=== PATIENT | female | born 1935 ===

== ENCOUNTER 2018-04-13 18:21 | Inpatient (IN) | payer MEDICARE, MEDICAID ==
[2018-04-13 20:24] LABS: SQUAMOUS EPITHIAL 1 /hpf (0-5); URINE BACTERIA RARE (<OCC); URINE BILIRUBIN NEGATIVE (NEGATIVE); URINE BLOOD NEGATIVE (NEGATIVE); URINE CLARITY CLEAR (Clear); URINE COLOR COLORLESS (YELLOW); URINE GLUCOSE (UA) NEG (Normal); URINE LEUKOCYTE ESTERASE MOD Leu/uL (Negative); URINE PROTEIN NEGATIVE (NEGATIVE); URINE UROBILINOGEN 0.2-1.0 mg/dL (0.2-1.0)
[2018-04-13 20:27] LABS: INR 0.9 (0.9-1.2); PARTIAL THROMBOPLASTIN TIME 23.9 Seconds (25.6-37.1); PROTHROMBIN TIME 10.4 Seconds (9.8-13.1)
[2018-04-13 20:29] LABS: CALCIUM 9.3 mg/dL (8.4-10.2); GFR AFRICAN-AMERICAN > 60; GFR NON-AFRICAN AMERICAN > 60
[2018-04-13 20:31] LABS: BASO # 0.1 K/uL (0.0-0.2); BASO % 1.1 % (0.0-2.0); EOS % 0.6 % (0.0-4.0); HEMOGLOBIN 12.5 g/dL (12.0-16.0); LYMPH # 1.5 K/uL (1.0-4.3); LYMPH % 25.7 % (20.0-40.0); MEAN CELL VOLUME 86.5 fl (81.0-99.0); MEAN CORPUSCULAR HEMOGLOBIN 28.7 pg (27.0-31.0); MEAN CORPUSCULAR HGB CONC 33.2 g/dL (33.0-37.0); MEAN PLATELET VOLUME 8.2 fl (7.2-11.7); MONO # 0.5 K/uL (0.0-0.8); NEUT # 3.9 K/uL (1.8-7.0); NEUT % 64.6 % (50.0-75.0); NRBC % 0.2 % (0.0-0.0); RBC 4.37 Mil/uL (3.80-5.20); RED CELL DISTRIBUTION WIDTH 15.1 % (11.5-14.5)
[2018-04-13 20:35] LABS: ALB/GLOB RATIO 1.1 (1.0-2.1); ALBUMIN 3.9 g/dL (3.5-5.0); ALT/SGPT 25 U/L (9-52); AST/SGOT 30 U/L (14-36); BLOOD UREA NITROGEN 22 mg/dl (7-17)
--- NOTE | 2018-04-13 20:57 | ED PDOC ---
Syncope/Near Syncope/Dizziness Time Seen by Provider: 04/13/18 19:16 Chief Complaint (Nursing): Dizziness/Lightheaded Chief Complaint (Provider): Generalized weakness History Per: Patient History/Exam Limitations: no limitations Onset/Duration Of Symptoms: Hrs Current Symptoms Are (Timing): Still Present Additional History Per: Patient Additional Complaint(s): 82yo female, with history of brain tumor surgery, hypertension, chronic vertigo , presents to ED with complaints of feeling generalized weakness, lightheadedness since 1400 today. Patient denies any vertiginous dizziness, nausea, or vomiting. She reports when the homemaker measured her blood pressure , it was 180/[address] Ryees, patient was advised to take another dose of her hypertension medication. Patient states on arrival to ER, her symptoms have resolved. She denies any associated chest pain, headache, fever, cough, nausea, vomiting, or shortness of breath. No other complaints. PMD: Dr. Reyes Past Medical History Reviewed: Historical Data, Nursing Documentation, Vital Signs Vital Signs: Last Vital Signs Temp 98.1 F 04/13/18 18:25 Pulse 73 04/13/18 20:02 Resp 21 04/13/18 20:02 BP 154/76 H 04/13/18 20:02 Pulse Ox 98 04/13/18 20:02 - Medical History PMH: Anxiety, Arthritis, Diabetes, HTN Denies: Chronic Kidney Disease Other PMH: chronic vertigo - Surgical History Other surgeries: brain tumor surgery - Family History Family History: States: No Known Family Hx - Social History Current smoker - smoking cessation education provided: No Alcohol: None Drugs: Denies - Home Medications Home Medications: Ambulatory Orders Medication Instructions Recorded Alprazolam [Xanax] 0.5 mg PO HS 10/06/15 Enalapril Maleate 2.5 mg PO DAILY 10/06/15 Promethazine DM [Phenergan DM 2 tsp PO Q4H 10/06/15 Syrup] Saxagliptin HCl/Metformin HCl 1 tab PO DAILY 10/06/15 [Kombiglyze Xr 5-500 mg Tablet] Ciprofloxacin HCl [Cipro] 500 mg PO BID #14 tab 11/06/15 Ibuprofen [Motrin] 600 mg PO Q6H PRN #10 tab 11/06/15 Tamsulosin [Flomax] 0.4 mg PO DAILY #14 cap 11/06/15 Cyanocobalamin [Vitamin B12 1000 04/13/18 mcg/ml Inj] Gabapentin [Neurontin] 300 mg PO 04/13/18 Rosuvastatin Calcium [Crestor] 10 mg PO 04/13/18 cycloSPORINE [Restasis] 1 liq 04/13/18 - Allergies Allergies/Adverse Reactions: Allergies Allergy/AdvReac Type Severity Reaction Status Date / Time No Known Allergies Allergy Verified 04/13/18 18:25 Review of Systems ROS Statement: Except As Marked, All Systems Reviewed And Found Negative Constitutional: Positive for: Weakness. Negative for: Fever, Chills Cardiovascular: Negative for: Chest Pain Respiratory: Negative for: Cough, Shortness of Breath Gastrointestinal: Negative for: Nausea, Vomiting Neurological: Positive for: Dizziness Physical Exam - Reviewed Nursing Documentation Reviewed: Yes Vital Signs Reviewed: Yes - Physical Exam Appears: Positive for: Non-toxic, No Acute Distress Head Exam: Positive for: ATRAUMATIC, NORMAL INSPECTION, NORMOCEPHALIC Skin: Positive for: Normal Color Eye Exam: Positive for: Normal appearance Neck: Positive for: Normal, Supple Cardiovascular/Chest: Positive for: Regular Rate, Rhythm Respiratory: Positive for: Normal Breath Sounds. Negative for: Wheezing Gastrointestinal/Abdominal: Positive for: Soft. Negative for: Tenderness Back: Positive for: Normal Inspection Extremity: Positive for: Normal ROM. Negative for: Pedal Edema, Deformity Neurologic/Psych: Positive for: Alert, Oriented. Negative for: Motor/Sensory Deficits - Laboratory Results Result Diagrams: 04/13/18 19:56 04/13/18 19:56 - ECG ECG: Positive for: Interpreted By Me, Viewed By Me ECG Rhythm: Positive for: Sinus Rhythm, 1st Degree Heart Block, Left Bundle Branch Block Rate: 69 (18:35) O2 Sat by Pulse Oximetry: 98 (RA) Pulse Ox Interpretation: Normal Medical Decision Making Medical Decision Making: Impression: 82yo female with episode of weakness Plan: -- Labs -- EKG -- Urinalysis Time: [address] Reyes and patient to be admitted for observation due to near-syncope. Labs reviewed with no clinically significant abnormalities noted. Scribe Attestation: Documented by Shauna Arizmendi, acting as a scribe for Mao Flynn MD Provider Attestation: All medical record entries made by the Scribe were at my direction and personally dictated by me. I have reviewed the chart and agree that the record accurately reflects my personal performance of the history, physical exam, medical decision making, and the department course for this patient. I have also personally directed, reviewed, and agree with the discharge instructions and disposition. Disposition - Clinical Impression Clinical Impression: Near syncope - Disposition Disposition Time: 22:00 Condition: FAIR - Pt Status Changed To: Hospital Disposition Of: Observation
[2018-04-14 06:17] VITALS: BMI 30.3
--- NOTE | 2018-04-14 08:48 | RAD ---
HISTORY: admit COMPARISON: No prior. FINDINGS: LUNGS: No active pulmonary disease. PLEURA: No significant pleural effusion identified, no pneumothorax apparent. CARDIOVASCULAR: Atherosclerotic aortic calcifications. Cardiomediastinal silhouette appears enlarged ; however, this cannot be accurately assessed on an AP projection. OSSEOUS STRUCTURES: Degenerative changes. VISUALIZED UPPER ABDOMEN: Normal. OTHER FINDINGS: None. IMPRESSION: No active disease.
--- NOTE | 2018-04-14 10:30 | CARD ---
APPROVED REPORT EKG Measurement Heart [id number] CT 220P64 [id number] <Conclusion> Sinus rhythm with 1st degree AV block Left bundle branch block Abnormal ECG
[2018-04-14] MEDS: Enoxaparin 40 mg Syringe SC SCH (14:01)
--- NOTE | 2018-04-14 14:29 | CP.PCM.HP ---
History of Present Illness - History of Present Illness History of Present Illness: CC: Generalized weakness. 82 y/o F, Hx of Chronic vertigo, Brain Tumor S/P Craniectomy 2014, came to [facility], [place], on 03/13/18 accompany by her daughter, for the evaluation of generalized weakness associated to lightheadedness that began at 2 PM DOA with no relief. Worsening symptoms: Dizziness, increased anxiety. Pt with Hx of congenital deafness R ear, hard of hearing L ear after surgery on 2014 for leaking fluid and after with worsening tinnitus and loss of hearing L ear. Aggravated factor: Movements/exercise. No: Fever, chills, syncope, LOC, numbness, CP, palpitations, SOB, cough, n/v/d , abdominal pain, urinary symptoms, sick contact, recent travel out of [place]. CXR showed: No active disease. EKG: Sinus rhythm with 1st degree AV block, LBBB. Present on Admission - Present on Admission Any Indicators Present on Admission: No Review of Systems - Review of Systems Systems not reviewed;Unavailable: Acuity of Condition (deafness.) Past Patient History - Past Medical History & Family History Past Medical History?: Yes Pertinent Family History: Unknown - Past Social History Smoking Status: 40 yrs ago Alcohol: None Drugs: Denies Home Situation {Lives}: Alone - CARDIAC Hx Cardiac Disorders: Yes (HTN) Hx Hypertension: Yes - PULMONARY Hx Respiratory Disorders: No - NEUROLOGICAL Hx Neurological Disorder: Yes Hx Dizziness: Yes - HEENT Hx HEENT Problems: Yes (deaf) Hx Cataracts: Yes - RENAL Hx Chronic Kidney Disease: No - ENDOCRINE/METABOLIC Hx Endocrine Disorders: Yes (DM) Hx Diabetes Mellitus Type 2: Yes - HEMATOLOGICAL/ONCOLOGICAL Hx Blood Disorders: No - INTEGUMENTARY Hx Dermatological Problems: No - MUSCULOSKELETAL/RHEUMATOLOGICAL Hx Musculoskeletal Disorders: Yes Hx Arthritis: Yes Hx Falls: Yes (one year ago) - GASTROINTESTINAL Hx Gastrointestinal Disorders: No - GENITOURINARY/GYNECOLOGICAL Hx Genitourinary Disorders: No - PSYCHIATRIC Hx Psychophysiologic Disorder: Yes Hx Anxiety: Yes Hx Substance Use: No - SURGICAL HISTORY Hx Surgeries: Yes Hx Section: Yes Hx Eye Surgery: Yes Other/Comment: hx of L ear. brain sx x2 - ANESTHESIA Hx Anesthesia: Yes Hx Anesthesia Reactions: No Hx Malignant Hyperthermia: No Meds Allergies/Adverse Reactions: Allergies Allergy/AdvReac Type Severity Reaction Status Date / Time No Known Allergies Allergy Verified 04/13/18 18:25 Physical Exam - Constitutional Appears: No Acute Distress, Chronically Ill - Head Exam Head Exam: NORMAL INSPECTION - Eye Exam Eye Exam: PERRL - ENT Exam Additional comments: Deafness - Neck Exam Neck exam: Positive for: Normal Inspection - Respiratory Exam Respiratory Exam: NORMAL BREATHING PATTERN - Cardiovascular Exam Cardiovascular Exam: REGULAR RHYTHM - GI/Abdominal Exam GI & Abdominal Exam: Normal Bowel Sounds, Soft Additional comments: Under abdominal folds redness - Extremities Exam Additional comments: Discoloration on top of R foot - Back Exam Additional comments: Redness sacral area - Neurological Exam Neurological exam: Alert, Oriented x3 Additional comments: unsteady gait 2nd to dizziness. - Psychiatric Exam Psychiatric exam: Anxious - Skin Skin Exam: Warm Results - Vital Signs Recent Vital Signs: Last Vital Signs Temp 97.3 F L 04/14/18 12:00 Pulse 72 04/14/18 12:00 Resp 20 04/14/18 12:00 BP 97/60 L 04/14/18 12:00 Pulse Ox 97 04/14/18 12:00 [place] - Labs Result Diagrams: 04/13/18 19:56 04/13/18 19:56 Labs: Laboratory Results - last 24 hr 04/13/18 04/13/18 04/13/18 18:45 19:56 19:56 WBC 6.0 D RBC 4.37 Hgb 12.5 Hct 37.8 MCV 86.5 D MCH 28.7 MCHC 33.2 RDW 15.1 H Plt Count 177 MPV 8.2 Neut % (Auto) 64.6 Lymph % (Auto) 25.7 [place] % (Auto) 8.0 Eos % (Auto) 0.6 Baso % (Auto) 1.1 Neut # (Auto) 3.9 Lymph # (Auto) 1.5 [place] # (Auto) 0.5 Eos # (Auto) 0.0 Baso # (Auto) 0.1 PT INR APTT Sodium 142 Potassium 5.1 H Chloride 104 Carbon Dioxide 26 Anion Gap 17 BUN 22 H Creatinine 0.6 L Est GFR ( Amer) > 60 Est GFR (Non-Af Amer) > 60 POC Glucose (mg/dL) 82 Random Glucose 98 Calcium 9.3 Total Bilirubin 0.7 AST 30 ALT 25 Alkaline Phosphatase 68 Troponin I < 0.0120 Total Protein 7.6 Albumin 3.9 Globulin 3.6 Albumin/Globulin Ratio 1.1 Urine Color Urine Clarity Urine pH Ur Specific [place] Urine Protein Urine Glucose (UA) Urine Ketones Urine Blood Urine Nitrate Urine Bilirubin Urine Urobilinogen Ur Leukocyte Esterase Urine RBC (Auto) Urine Microscopic WBC Ur Squamous Epith Cells Urine Bacteria 04/13/18 04/13/18 04/14/18 19:56 19:56 12:03 WBC RBC Hgb Hct MCV MCH MCHC RDW Plt Count MPV Neut % (Auto) Lymph % (Auto) [place] % (Auto) Eos % (Auto) Baso % (Auto) Neut # (Auto) Lymph # (Auto) [place] # (Auto) Eos # (Auto) Baso # (Auto) PT 10.4 INR 0.9 APTT 23.9 L Sodium Potassium Chloride Carbon Dioxide Anion Gap BUN Creatinine Est GFR ( Amer) Est GFR (Non-Af Amer) POC Glucose (mg/dL) 128 H Random Glucose Calcium Total Bilirubin AST ALT Alkaline Phosphatase Troponin I Total Protein Albumin Globulin Albumin/Globulin Ratio Urine Color Colorless Urine Clarity Clear Urine pH 7.0 Ur Specific [place] < 1.005 Urine Protein Negative Urine Glucose (UA) Neg Urine Ketones Negative Urine Blood Negative Urine Nitrate Negative Urine Bilirubin Negative Urine Urobilinogen 0.2-1.0 Ur Leukocyte Esterase Mod Urine RBC (Auto) 1 Urine Microscopic WBC 2 Ur Squamous Epith Cells 1 Urine Bacteria Rare reviewed J.P. - EKG Data EKG comments: reviewed J.P. - Imaging and Cardiology Chest x-ray Status: Report reviewed by me (Renay) Assessment & Plan (1) Near syncope Status: Acute Priority: High (2) Generalized weakness Status: Acute (3) HTN (hypertension) Status: Acute (4) DM II (diabetes mellitus, type II), controlled Status: Chronic Priority: Medium (5) High cholesterol Status: Acute (6) Vitamin B12 deficiency Status: Chronic Priority: Medium (7) Hard of hearing Status: Chronic Priority: Medium - Assessment and Plan (Free Text) Plan: Continue Lovenox, Vasotec, Lipitor, Neurontin and rest of Tx. PT eval. - Date & Time Date: 04/14/18 Time: 10:00
[2018-04-15 06:05] LABS: BASO % 0.5 % (0.0-2.0); EOS # 0.1 K/uL (0.0-0.7); EOS % 1.6 % (0.0-4.0); HEMOGLOBIN 12.3 g/dL (12.0-16.0); LYMPH # 1.6 K/uL (1.0-4.3); MEAN CELL VOLUME 87.1 fl (81.0-99.0); MEAN CORPUSCULAR HEMOGLOBIN 28.9 pg (27.0-31.0); MEAN CORPUSCULAR HGB CONC 33.2 g/dL (33.0-37.0); MEAN PLATELET VOLUME 7.7 fl (7.2-11.7); MONO # 0.5 K/uL (0.0-0.8); MONO % 9.5 % (0.0-10.0); NEUT % 57.4 % (50.0-75.0); NRBC % 0.1 % (0.0-0.0); RBC 4.25 Mil/uL (3.80-5.20); RED CELL DISTRIBUTION WIDTH 14.8 % (11.5-14.5); WHITE BLOOD COUNT 5.2 K/uL (4.8-10.8)
[2018-04-15 06:34] LABS: LDL CHOLESTEROL 117 mg/dL (0-129)
[2018-04-15 06:37] LABS: T4 7.21 ug/dl (5.5-11.0)
[2018-04-15 07:34] LABS: ALBUMIN 3.4 g/dL (3.5-5.0); ALT/SGPT 24 U/L (9-52); AST/SGOT 20 U/L (14-36); BLOOD UREA NITROGEN 14 mg/dl (7-17); CALCIUM 8.8 mg/dL (8.4-10.2); GFR AFRICAN-AMERICAN > 60; GFR NON-AFRICAN AMERICAN > 60; HDL CHOLESTEROL 48 MG/DL (30-70)
[2018-04-15] MEDS: Enoxaparin 40 mg Syringe SC SCH (08:46)
--- NOTE | 2018-04-15 10:33 | CARD ---
APPROVED REPORT EXAM: Two-dimensional and M-mode echocardiogram with Doppler and color Doppler. Other Information Quality : AverageRhythm : NSR INDICATION Hypertension/HCVD Syncope 2D DIMENSIONS IVSd1.24 (0.7-1.1cm)LVDd3.39 (3.9-5.9cm) LVOT Diameter1.93 (1.8-2.4cm)PWd1.07 (0.7-1.1cm) IVSs1.35 (0.8-1.2cm)LVDs2.40 (2.5-4.0cm) FS (%) 29.3 %PWs1.36 (0.8-1.2cm) LVEF (%)55.0 (>50%) M-Mode DIMENSIONS Left Atrium (MM)4.38 (2.5-4.0cm)IVSd1.38 (0.7-1.1cm) Aortic Root3.03 (2.2-3.7cm)LVDd3.74 (4.0-5.6cm) Aortic Cusp Exc.1.88 (1.5-2.0cm)PWd1.32 (0.7-1.1cm) IVSs1.47 cmFS (%) 40 % LVDs2.24 (2.0-3.8cm)PWs1.29 cm Mitral Valve E/A ratio0.0 TDI E/Lateral E'0.0E/Medial E'0.0 LEFT VENTRICLE The left ventricle is normal size. There is borderline concentric left ventricular hypertrophy. The left ventricular function is normal. The left ventricular ejection fraction is within the normal range. There is normal LV segmental wall motion. Transmitral Doppler flow pattern is Grade I-abnormal relaxation pattern. RIGHT VENTRICLE The right ventricle is normal size. There is normal right ventricular wall thickness. The right ventricular systolic function is normal. ATRIA The left atrium is borderline dilated. The right atrium size is normal. AORTIC VALVE The aortic valve is not well visualized. There is trace aortic regurgitation. There is no aortic valvular stenosis. MITRAL VALVE The mitral valve is not well visualized. There is no mitral valve stenosis. There is no mitral valve regurgitation noted. TRICUSPID VALVE The tricuspid valve is normal in structure. There is no tricuspid valve regurgitation noted. PULMONIC VALVE The pulmonary valve is normal in structure. There is no pulmonic valvular regurgitation. GREAT VESSELS The aortic root is normal in size. The IVC was not visualized. PERICARDIAL EFFUSION The pericardium appears normal. <Conclusion> The left ventricle is normal size. The left ventricular function is normal. The left ventricular ejection fraction is within the normal range. There is normal LV segmental wall motion. Transmitral Doppler flow pattern is Grade I-abnormal relaxation pattern.
--- NOTE | 2018-04-15 11:13 | CT ---
PROCEDURE: CT HEAD WITHOUT CONTRAST. HISTORY: near syncope COMPARISON: 10/06/2015 TECHNIQUE: Axial computed tomography images were obtained through the head/brain without intravenous contrast. Radiation dose: Total exam DLP = 859 mGy-cm. This CT exam was performed using one or more of the following dose reduction techniques: Automated exposure control, adjustment of the mA and/or kV according to patient size, and/or use of iterative reconstruction technique. FINDINGS: HEMORRHAGE: No intracranial hemorrhage. BRAIN: A chronic appearing left frontal meningioma suggested -measuring 1.8 by 1.3 cm ; inner calvarial hyperostosis associated with this. Possible smaller right mild level frontal meningioma with contiguous blending inner calvarial hyperostoses. A left anterior middle cranial fossa 1.2 cm chronic appearing partially calcified meningioma is suggested. Posterior and superior to this there are left craniotomy changes more extensive craniectomy changes on the right suboccipital location suggested similar in appearance Similar mild age-appropriate atrophy. No interval significant microvascular ischemic changes appreciated VENTRICLES: Appropriate for age CALVARIUM: Postsurgical changes as above PARANASAL SINUSES: The opacification of the lateral right sphenoid air cell and the posterior main right lateral sphenoid air cell is renoted underlying retention cysts here inferred MASTOID AIR CELLS: There is some improved aeration in each inferior mastoid air cell effusion. Minimal residual effusion nonspecific still present. OTHER FINDINGS: Prominent empty sella - similar-appearing IMPRESSION: Postop changes as above. No interval hemorrhage or interval mass effect. Bilateral chronic appearing meningiomas -as above
--- NOTE | 2018-04-15 11:20 | CP.PCM.CON ---
History of Present Illness - History of Present Illness History of Present Illness: Consultation for evaluation of syncope Patient is [place] and congenitally deaf in the R ear. Interpretation was provided by S[place] interpretor via audio and visual text HPI: 82 yo F with PMH of HTN, T2DM, HLD who had an episode of dizziness /lightheadedness, blurry vision (seeing spots) and generalized weakness that occurred 2 days ago. Her BP was measured by a home health aide at 180s/90s. Patient was given an additional dose of her Enalapril at home before coming to the ED for evaluation. Upon arrival, her BP was 154/76. EKG showed sinus rhythm at 69 with 1st deg AVB and LBBB. ECHO revealed mild concentric LVH with EF 55%. Today, patient is pleasant and without denies any complaints. Denies chest pain , palpitations, n/v, dizziness or headache. Review of Systems - Constitutional Constitutional: As Per HPI. absent: Fatigue, Fever - Neurological Neurological: Dizziness. absent: Loss of Vision, Syncope Past Patient History - Past Medical History & Family History Past Medical History?: Yes - Past Social History Smoking Status: 40 yrs ago Alcohol: None Drugs: Denies Home Situation {Lives}: Alone - CARDIAC Hx Cardiac Disorders: Yes (HTN) Hx Hypertension: Yes - PULMONARY Hx Respiratory Disorders: No - NEUROLOGICAL Hx Neurological Disorder: Yes Hx Dizziness: Yes - HEENT Hx HEENT Problems: Yes (deaf) Hx Cataracts: Yes - RENAL Hx Chronic Kidney Disease: No - ENDOCRINE/METABOLIC Hx Endocrine Disorders: Yes (DM) Hx Diabetes Mellitus Type 2: Yes - HEMATOLOGICAL/ONCOLOGICAL Hx Blood Disorders: No - INTEGUMENTARY Hx Dermatological Problems: No - MUSCULOSKELETAL/RHEUMATOLOGICAL Hx Musculoskeletal Disorders: Yes Hx Arthritis: Yes Hx Falls: Yes (one year ago) - GASTROINTESTINAL Hx Gastrointestinal Disorders: No - GENITOURINARY/GYNECOLOGICAL Hx Genitourinary Disorders: No - PSYCHIATRIC Hx Psychophysiologic Disorder: Yes Hx Anxiety: Yes Hx Substance Use: No - SURGICAL HISTORY Hx Surgeries: Yes Hx Section: Yes Hx Eye Surgery: Yes Other/Comment: hx of L ear. brain sx x2 - ANESTHESIA Hx Anesthesia: Yes Hx Anesthesia Reactions: No Hx Malignant Hyperthermia: No Meds Allergies/Adverse Reactions: Allergies Allergy/AdvReac Type Severity Reaction Status Date / Time No Known Allergies Allergy Verified 04/13/18 18:25 - Medications Medications: Current Medications Alprazolam (Xanax) 0.5 mg PO HS [facility] Last Admin: 04/14/18 22:19 Dose: 0.5 mg Atorvastatin Calcium (Lipitor) 20 mg PO DAILY [facility] Last Admin: 04/15/18 08:46 Dose: 20 mg Enalapril Maleate (Vasotec) 2.5 mg PO DAILY [facility] Last Admin: 04/15/18 08:46 Dose: 2.5 mg Enoxaparin Sodium (Lovenox) 40 mg SC DAILY [facility] PRN Reason: Protocol Last Admin: 04/15/18 08:46 Dose: 40 mg Gabapentin (Neurontin) 300 mg PO [facility] Last Admin: 04/14/18 22:19 Dose: 300 mg Physical Exam - Constitutional Appears: Well, Non-toxic, No Acute Distress - Head Exam Head Exam: ATRAUMATIC, NORMOCEPHALIC - Eye Exam Eye Exam: Normal appearance - Respiratory Exam Respiratory Exam: Clear to Auscultation Bilateral, NORMAL BREATHING PATTERN - Cardiovascular Exam Cardiovascular Exam: REGULAR RHYTHM, RRR, +S1, +S2 Results - Vital Signs Recent Vital Signs: Last Vital Signs Temp 97.9 F 04/15/18 08:00 Pulse 54 L 04/15/18 08:00 Resp 18 04/15/18 08:00 BP 112/64 04/15/18 08:00 Pulse Ox 98 04/15/18 08:00 - Labs Result Diagrams: 04/15/18 04:20 04/15/18 04:20 Labs: Laboratory Results - last 24 hr 04/14/18 04/14/18 04/14/18 12:03 16:10 21:27 WBC RBC Hgb Hct MCV MCH MCHC RDW Plt Count MPV Neut % (Auto) Lymph % (Auto) [place] % (Auto) Eos % (Auto) Baso % (Auto) Neut # (Auto) Lymph # (Auto) [place] # (Auto) Eos # (Auto) Baso # (Auto) Sodium Potassium Chloride Carbon Dioxide Anion Gap BUN Creatinine Est GFR ( Amer) Est GFR (Non-Af Amer) POC Glucose (mg/dL) 128 H 103 103 Random Glucose Calcium Total Bilirubin AST ALT Alkaline Phosphatase Total Protein Albumin Globulin Albumin/Globulin Ratio Triglycerides Cholesterol LDL Cholesterol Direct HDL Cholesterol Vitamin B12 Thyroxine (T4) TSH 3rd Generation 04/15/18 04/15/18 04/15/18 04:20 04:20 05:19 WBC 5.2 RBC 4.25 Hgb 12.3 Hct 37.0 MCV 87.1 MCH 28.9 MCHC 33.2 RDW 14.8 H Plt Count 251 MPV 7.7 Neut % (Auto) 57.4 Lymph % (Auto) 31.0 [place] % (Auto) 9.5 Eos % (Auto) 1.6 Baso % (Auto) 0.5 Neut # (Auto) 3.0 Lymph # (Auto) 1.6 [place] # (Auto) 0.5 Eos # (Auto) 0.1 Baso # (Auto) 0.0 Sodium 141 Potassium 3.8 Chloride 106 Carbon Dioxide 27 Anion Gap 12 BUN 14 Creatinine 0.6 L Est GFR ( Amer) > 60 Est GFR (Non-Af Amer) > 60 POC Glucose (mg/dL) 92 Random Glucose 100 Calcium 8.8 Total Bilirubin 0.4 AST 20 ALT 24 Alkaline Phosphatase 71 Total Protein 6.6 Albumin 3.4 L Globulin 3.3 Albumin/Globulin Ratio 1.0 Triglycerides 130 Cholesterol 210 H LDL Cholesterol Direct 117 HDL Cholesterol 48 Vitamin B12 543 Thyroxine (T4) 7.21 TSH 3rd Generation 1.72 Assessment & Plan (1) Near syncope Assessment and Plan: etiology ? 2' to meningioma vs HTN induced echo reviewed IVF hydration Status: Acute Priority: High Comment: 1. BNP. 2. Orthostatics x 1. 3. Urine E-Lytes, will measure FENa (2) Generalized weakness Status: Acute (3) HTN (hypertension) Status: Chronic Comment: Continue Enalapril (4) High cholesterol Status: Chronic Comment: Continue Lipitor - Date & Time Date: 04/15/18 Time: 20:33
--- NOTE | 2018-04-15 12:52 | CP.PCM.CON ---
History of Present Illness - History of Present Illness History of Present Illness: Miss loving is an 82 yr old woman, right handed with pmh of meningioma s/p craniectomy 2015, chronic vertigo, and hypertension who presented to the er for weakness and lightheadedness with dizziness that started 2 days prior. Denies aphasia, weakness, facial droop, mva, or recent change in medications. Her daughter states that her hypertension is very uncontrolled, but today she does not have any dizziness. No: Fever, chills, syncope, LOC, numbness, CP, palpitations, SOB, cough, n/v/d , abdominal pain, urinary symptoms, sick contact, recent travel out of [facility]. CXR showed: No active disease. EKG: Sinus rhythm with 1st degree AV block, LBBB. on exam; Neurological exam is normal except for wide based gait Past Patient History - Past Medical History & Family History Past Medical History?: Yes - Past Social History Smoking Status: 40 yrs ago Alcohol: None Drugs: Denies Home Situation {Lives}: Alone - CARDIAC Hx Cardiac Disorders: Yes (HTN) Hx Hypertension: Yes - PULMONARY Hx Respiratory Disorders: No - NEUROLOGICAL Hx Neurological Disorder: Yes Hx Dizziness: Yes - HEENT Hx HEENT Problems: Yes (deaf) Hx Cataracts: Yes - RENAL Hx Chronic Kidney Disease: No - ENDOCRINE/METABOLIC Hx Endocrine Disorders: Yes (DM) Hx Diabetes Mellitus Type 2: Yes - HEMATOLOGICAL/ONCOLOGICAL Hx Blood Disorders: No - INTEGUMENTARY Hx Dermatological Problems: No - MUSCULOSKELETAL/RHEUMATOLOGICAL Hx Musculoskeletal Disorders: Yes Hx Arthritis: Yes Hx Falls: Yes (one year ago) - GASTROINTESTINAL Hx Gastrointestinal Disorders: No - GENITOURINARY/GYNECOLOGICAL Hx Genitourinary Disorders: No - PSYCHIATRIC Hx Psychophysiologic Disorder: Yes Hx Anxiety: Yes Hx Substance Use: No - SURGICAL HISTORY Hx Surgeries: Yes Hx Section: Yes Hx Eye Surgery: Yes Other/Comment: hx of L ear. brain sx x2 - ANESTHESIA Hx Anesthesia: Yes Hx Anesthesia Reactions: No Hx Malignant Hyperthermia: No Meds Allergies/Adverse Reactions: Allergies Allergy/AdvReac Type Severity Reaction Status Date / Time No Known Allergies Allergy Verified 04/13/18 18:25 - Medications Medications: Current Medications Alprazolam (Xanax) 0.5 mg PO HS [facility] Last Admin: 04/14/18 22:19 Dose: 0.5 mg Atorvastatin Calcium (Lipitor) 20 mg PO DAILY [facility] Last Admin: 04/15/18 08:46 Dose: 20 mg Enalapril Maleate (Vasotec) 2.5 mg PO DAILY [facility] Last Admin: 04/15/18 08:46 Dose: 2.5 mg Enoxaparin Sodium (Lovenox) 40 mg SC DAILY [facility] PRN Reason: Protocol Last Admin: 04/15/18 08:46 Dose: 40 mg Gabapentin (Neurontin) 300 mg PO HS [facility] Last Admin: 04/14/18 22:19 Dose: 300 mg Results - Vital Signs Recent Vital Signs: Last Vital Signs Temp 97.9 F 04/15/18 08:00 Pulse 54 L 04/15/18 08:00 Resp 18 04/15/18 08:00 BP 112/64 04/15/18 08:00 Pulse Ox 98 04/15/18 08:00 - Labs Result Diagrams: 04/15/18 04:20 04/15/18 04:20 Labs: Laboratory Results - last 24 hr 04/14/18 04/14/18 04/15/18 16:10 21:27 04:20 WBC 5.2 RBC 4.25 Hgb 12.3 Hct 37.0 MCV 87.1 MCH 28.9 MCHC 33.2 RDW 14.8 H Plt Count 251 MPV 7.7 Neut % (Auto) 57.4 Lymph % (Auto) 31.0 Wood % (Auto) 9.5 Eos % (Auto) 1.6 Baso % (Auto) 0.5 Neut # (Auto) 3.0 Lymph # (Auto) 1.6 Wood # (Auto) 0.5 Eos # (Auto) 0.1 Baso # (Auto) 0.0 Sodium Potassium Chloride Carbon Dioxide Anion Gap BUN Creatinine Est GFR ( Amer) Est GFR (Non-Af Amer) POC Glucose (mg/dL) 103 103 Random Glucose Hemoglobin A1c Calcium Total Bilirubin AST ALT Alkaline Phosphatase Total Protein Albumin Globulin Albumin/Globulin Ratio Triglycerides Cholesterol LDL Cholesterol Direct HDL Cholesterol Vitamin B12 25-OH Vitamin D Total Thyroxine (T4) TSH 3rd Generation 04/15/18 04/15/18 04/15/18 04:20 04:20 04:20 WBC RBC Hgb Hct MCV MCH MCHC RDW Plt Count MPV Neut % (Auto) Lymph % (Auto) Wood % (Auto) Eos % (Auto) Baso % (Auto) Neut # (Auto) Lymph # (Auto) Wood # (Auto) Eos # (Auto) Baso # (Auto) Sodium 141 Potassium 3.8 Chloride 106 Carbon Dioxide 27 Anion Gap 12 BUN 14 Creatinine 0.6 L Est GFR ( Amer) > 60 Est GFR (Non-Af Amer) > 60 POC Glucose (mg/dL) Random Glucose 100 Hemoglobin A1c 6.0 Calcium 8.8 Total Bilirubin 0.4 AST 20 ALT 24 Alkaline Phosphatase 71 Total Protein 6.6 Albumin 3.4 L Globulin 3.3 Albumin/Globulin Ratio 1.0 Triglycerides 130 Cholesterol 210 H LDL Cholesterol Direct 117 HDL Cholesterol 48 Vitamin B12 543 25-OH Vitamin D Total 25.5 L Thyroxine (T4) 7.21 TSH 3rd Generation 1.72 04/15/18 04/15/18 05:19 11:13 WBC RBC Hgb Hct MCV MCH MCHC RDW Plt Count MPV Neut % (Auto) Lymph % (Auto) Wood % (Auto) Eos % (Auto) Baso % (Auto) Neut # (Auto) Lymph # (Auto) Wood # (Auto) Eos # (Auto) Baso # (Auto) Sodium Potassium Chloride Carbon Dioxide Anion Gap BUN Creatinine Est GFR ( Amer) Est GFR (Non-Af Amer) POC Glucose (mg/dL) 92 115 H Random Glucose Hemoglobin A1c Calcium Total Bilirubin AST ALT Alkaline Phosphatase Total Protein Albumin Globulin Albumin/Globulin Ratio Triglycerides Cholesterol LDL Cholesterol Direct HDL Cholesterol Vitamin B12 25-OH Vitamin D Total Thyroxine (T4) TSH 3rd Generation - Imaging and Cardiology CT scan - head Status: Image reviewed by me, Report reviewed by me (ct head : no hemorrhage. shows chronic left frontal meningioma, calcified. ) Assessment & Plan - Assessment and Plan (Free Text) Assessment: 82 yr old woman with uncontrolled hypertension and dizziness secondary to bp , with no signs of stroke. plan: 1. control blood pressure. 2. gait training. Please reconsult prn. thank you dr. seth
--- NOTE | 2018-04-15 16:06 | CP.PCM.PN ---
Subjective - Date & Time of Evaluation Date of Evaluation: 04/15/18 Time of Evaluation: 10:20 - Subjective Subjective: F/U Generalized weakness. Pt awake, smiling, no A/D, no c/o, family at bed side Objective - Vital Signs/Intake and Output Vital Signs (last 24 hours): Temp Pulse Resp BP Pulse Ox 98.1 F 66 20 136/76 99 04/15/18 15:45 04/15/18 15:45 04/15/18 15:45 04/15/18 15:45 04/15/18 15:45 - Medications Medications: Current Medications Alprazolam (Xanax) 0.5 mg PO [facility] Last Admin: 04/14/18 22:19 Dose: 0.5 mg Atorvastatin Calcium (Lipitor) 20 mg PO DAILY [facility] Last Admin: 04/15/18 08:46 Dose: 20 mg Enalapril Maleate (Vasotec) 2.5 mg PO DAILY [facility] Last Admin: 04/15/18 08:46 Dose: 2.5 mg Enoxaparin Sodium (Lovenox) 40 mg SC DAILY [facility] PRN Reason: Protocol Last Admin: 04/15/18 08:46 Dose: 40 mg Gabapentin (Neurontin) 300 mg PO [facility] Last Admin: 04/14/18 22:19 Dose: 300 mg - Labs Labs: 04/15/18 04:20 04/15/18 04:20 PT 10.4 Seconds (9.8-13.1) 04/13/18 19:56 INR 0.9 (0.9-1.2) 04/13/18 19:56 APTT 23.9 Seconds (25.6-37.1) L 04/13/18 19:56 - Constitutional Appears: No Acute Distress, Chronically Ill - Head Exam Head Exam: NORMAL INSPECTION - Eye Exam Eye Exam: PERRL - ENT Exam Additional comments: Deafness - Neck Exam Neck Exam: Normal Inspection - Respiratory Exam Respiratory Exam: NORMAL BREATHING PATTERN - Cardiovascular Exam Cardiovascular Exam: REGULAR RHYTHM - GI/Abdominal Exam GI & Abdominal Exam: Soft, Normal Bowel Sounds Additional comments: Redness abdominal folds - Extremities Exam Additional comments: Discoloration on top of R foot - Back Exam Additional comments: Redness sacral area - Neurological Exam Neurological Exam: Alert, Oriented x3 Additional comments: Unsteady gait 2nd to dizziness. - Psychiatric Exam Psychiatric exam: Anxious - Skin Skin Exam: Warm Assessment and Plan (1) Near syncope Status: Acute (2) Generalized weakness Status: Acute (3) HTN (hypertension) Status: Acute (4) DM II (diabetes mellitus, type II), controlled Status: Chronic (5) High cholesterol Status: Acute (6) Vitamin B12 deficiency Status: Chronic (7) Hard of hearing Status: Chronic - Assessment and Plan (Free Text) Plan: Head CT showed : No hemorrhage or interval mass effect. B/L chronic meningiomas. Echo: LVEF= WNL. Continue curret tx. F/U Carotid U-S report.
[2018-04-15 19:26] LABS: SQUAMOUS EPITHIAL < 1 /hpf (0-5); URINE BACTERIA RARE (<OCC); URINE BILIRUBIN NEGATIVE (NEGATIVE); URINE BLOOD NEGATIVE (NEGATIVE); URINE CLARITY CLEAR (Clear); URINE COLOR STRAW (YELLOW); URINE GLUCOSE (UA) NEG (Normal); URINE LEUKOCYTE ESTERASE LARGE Leu/uL (Negative); URINE PROTEIN NEGATIVE (NEGATIVE); URINE UROBILINOGEN 0.2-1.0 mg/dL (0.2-1.0)
[2018-04-16] MEDS: Enoxaparin 40 mg Syringe SC SCH (08:54)
--- NOTE | 2018-04-16 10:01 | US ---
PROCEDURE: Duplex ultrasound of the carotid and vertebral arteries. HISTORY: vertigo COMPARISON: None available. TECHNIQUE: Grayscale and duplex Doppler evaluation of the cervical carotid and vertebral arteries were performed. The common carotid, carotid bifurcations and cervical ICA and proximal ECA were evaluated. The vertebral arteries were evaluated for gross patency and direction. FINDINGS: RIGHT CAROTID ARTERIES: Common Carotid Artery: Normal. Maximal flow velocity of 59.9 cm/s. Carotid Bifurcation: Calcific plaque. Internal Carotid Artery:Normal. Maximal flow velocity of 71.6 cm/s. External Carotid Artery (proximal branches): Normal. Maximal flow velocity of 70.3 cm/s. ICA/CCA Ratio: 1.2 LEFT CAROTID ARTERIES: Common Carotid Artery: Normal. Maximal flow velocity of 106.4 cm/s. Carotid Bifurcation: Calcific plaque. Internal Carotid Artery:Normal. Maximal flow velocity of 71.6 cm/s. External Carotid Artery (proximal branches): Normal. Maximal flow velocity of 82.0 cm/s. ICA/CCA Ratio: 1.1 VERTEBRAL ARTERIES: Right Vertebral Artery: Patent. Antegrade flow. Left Vertebral Artery: Patent. Antegrade flow. OTHER FINDINGS: None. IMPRESSION: Per NASCET criteria, less than 50 percent stenosis of the internal carotid arteries bilaterally.
--- NOTE | 2018-04-16 13:58 | PQF GENQUE ---
This form is a permanent part of the medical record 04/16/18 Dr. Reyes, Patient admitted with Generalized weakness, near syncope. (symptom) Please provide the underlying diagnosis causing the patient's documented symptom after workup. Admitted with Near syncope. C/O weakness associated to lightheadedness . EKG: Sinus 1st degree AV Block, LBBB. CT HEAD : Postop changes, No interval hemorrhage or interval mass effect. Chronic meningiomas ECHO: LVEF WNL. CAROTIDS: < 50% stenosis of the internal carotid arteries bilaterally. Neuro: uncontrolled hypertension and dizziness secondary to bp, with no signs of stroke. Cardio: Draft: Generalized weakness, near syncope Medications: Meclizine, Lipitor, Lovenox, Neurontin, Vasotec, Xanax Clarification of your documentation is requested to better reflect the severity of illness and intensity of treatment of your patient. Indicators present PHYSICIAN'S RESPONSE Based on your medical judgment of the clinical indicators outlined above please clarify the following: [] Practitioner response [] If unable to determine, please check the box, sign and date. Present On Admission (POA) Indicator: [] Present at the time of admission [] Not present at the time of admission [] Clinically Undetermined In responding to this query, please exercise your independent professional judgment. The fact that a question is asked does not imply that any particular answer is desired or expected. Thank you for your clarification on this documentation. If you have any questions please call:ext [phone] * Thank you, Mary Garcia RN [facility]
--- NOTE | 2018-04-16 14:28 | CP.PCM.PN ---
Subjective - Date & Time of Evaluation Date of Evaluation: 04/16/18 Time of Evaluation: 10:30 - Subjective Subjective: F/U Generalized weakness/ Near syncope. Pt c/o of increased dizziness today with unsteady gait. Objective - Vital Signs/Intake and Output Vital Signs (last 24 hours): Temp Pulse Resp BP Pulse Ox 97.7 F 66 18 130/65 97 04/16/18 12:10 04/16/18 12:10 04/16/18 12:10 04/16/18 12:10 04/16/18 12:10 - Medications Medications: Current Medications Alprazolam (Xanax) 0.5 mg PO HS [facility] Last Admin: 04/15/18 22:04 Dose: 0.5 mg Atorvastatin Calcium (Lipitor) 20 mg PO DAILY [facility] Last Admin: 04/16/18 08:54 Dose: 20 mg Enalapril Maleate (Vasotec) 2.5 mg PO DAILY [facility] Last Admin: 04/16/18 08:54 Dose: 2.5 mg Enoxaparin Sodium (Lovenox) 40 mg SC DAILY [facility] PRN Reason: Protocol Last Admin: 04/16/18 08:54 Dose: 40 mg Gabapentin (Neurontin) 300 mg PO HS [facility] Last Admin: 04/15/18 22:04 Dose: 300 mg Meclizine HCl (Antivert) 25 mg PO TID [facility] Last Admin: 04/16/18 12:09 Dose: 25 mg - Labs Labs: 04/15/18 04:20 04/15/18 04:20 PT 10.4 Seconds (9.8-13.1) 04/13/18 19:56 INR 0.9 (0.9-1.2) 04/13/18 19:56 APTT 23.9 Seconds (25.6-37.1) L 04/13/18 19:56 - Constitutional Appears: No Acute Distress, Chronically Ill - Head Exam Head Exam: NORMAL INSPECTION - Eye Exam Eye Exam: PERRL - ENT Exam Additional comments: Deafness - Neck Exam Neck Exam: Normal Inspection - Respiratory Exam Respiratory Exam: NORMAL BREATHING PATTERN - Cardiovascular Exam Cardiovascular Exam: REGULAR RHYTHM - GI/Abdominal Exam GI & Abdominal Exam: Soft, Normal Bowel Sounds Additional comments: Redness to abdominal folds - Extremities Exam Additional comments: Discoloration on top of R foot - Back Exam Additional comments: Redness on sacral area - Neurological Exam Neurological Exam: Alert, Oriented x3 Additional comments: Unsteady gait 2nd to dizziness. - Psychiatric Exam Psychiatric exam: Anxious - Skin Skin Exam: Warm Assessment and Plan (1) Near syncope Status: Acute (2) Generalized weakness Status: Acute (3) HTN (hypertension) Status: Chronic (4) DM II (diabetes mellitus, type II), controlled Status: Chronic (5) High cholesterol Status: Chronic (6) Vitamin B12 deficiency Status: Chronic (7) Hard of hearing Status: Chronic - Assessment and Plan (Free Text) Plan: Evaluate for TCU.
--- NOTE | 2018-04-16 23:57 | CP.PCM.PN ---
Subjective - Date & Time of Evaluation Date of Evaluation: 04/16/18 Time of Evaluation: 10:00 - Subjective Subjective: feeling better dizziness resolved Objective - Vital Signs/Intake and Output Vital Signs (last 24 hours): Temp Pulse Resp BP Pulse Ox 98.5 F 78 20 129/79 96 04/16/18 19:40 04/16/18 19:40 04/16/18 19:40 04/16/18 19:40 04/16/18 19:40 - Medications Medications: Current Medications Alprazolam (Xanax) 0.5 mg PO [facility] Last Admin: 04/16/18 22:47 Dose: 0.5 mg Atorvastatin Calcium (Lipitor) 20 mg PO DAILY [facility] Last Admin: 04/16/18 08:54 Dose: 20 mg Enalapril Maleate (Vasotec) 2.5 mg PO DAILY [facility] Last Admin: 04/16/18 08:54 Dose: 2.5 mg Enoxaparin Sodium (Lovenox) 40 mg SC DAILY [facility] PRN Reason: Protocol Last Admin: 04/16/18 08:54 Dose: 40 mg Gabapentin (Neurontin) 300 mg PO [facility] Last Admin: 04/16/18 22:47 Dose: 300 mg Meclizine HCl (Antivert) 25 mg PO TID [facility] Last Admin: 04/16/18 16:26 Dose: 25 mg - Labs Labs: 04/15/18 04:20 04/15/18 04:20 PT 10.4 Seconds (9.8-13.1) 04/13/18 19:56 INR 0.9 (0.9-1.2) 04/13/18 19:56 APTT 23.9 Seconds (25.6-37.1) L 04/13/18 19:56 - Constitutional Appears: Well - Head Exam Head Exam: ATRAUMATIC, NORMAL INSPECTION, NORMOCEPHALIC - Eye Exam Eye Exam: EOMI, Normal appearance, PERRL Pupil Exam: NORMAL ACCOMODATION, PERRL - ENT Exam ENT Exam: Mucous Membranes Moist, Normal Exam - Neck Exam Neck Exam: Full ROM, Normal Inspection. absent: Lymphadenopathy - Respiratory Exam Respiratory Exam: Clear to Ausculation Bilateral, NORMAL BREATHING PATTERN - Cardiovascular Exam Cardiovascular Exam: REGULAR RHYTHM, +S1, +S2, Murmur - GI/Abdominal Exam GI & Abdominal Exam: Soft, Normal Bowel Sounds. absent: Tenderness - Extremities Exam Extremities Exam: Full ROM, Normal Capillary Refill, Normal Inspection. absent : Joint Swelling, Pedal Edema - Back Exam Back Exam: NORMAL INSPECTION - Neurological Exam Neurological Exam: Alert, Awake, CN II-XII Intact, Oriented x3 - Psychiatric Exam Psychiatric exam: Normal Affect, Normal Mood - Skin Skin Exam: Dry, Intact, Normal Color, Warm Assessment and Plan (1) Near syncope Assessment & Plan: etiology unclear echo - no signs to suggest cardiac source ? orthostatics BP control Status: Acute (2) Generalized weakness Status: Acute (3) HTN (hypertension) Assessment & Plan: bp stable in house Status: Chronic (4) High cholesterol Status: Chronic
[2018-04-17 08:19] VITALS: RESP 20
[2018-04-17] MEDS: Enoxaparin 40 mg Syringe SC SCH (09:35)
[2018-04-17 12:34] VITALS: BP 135/70; PULSE 91; TEMP 98.1; O2SAT 99
--- NOTE | 2018-04-17 13:38 | CP.PCM.DIS ---
Provider - Provider Date of Admission: 04/15/18 14:05 Attending physician: Joel Reyes MD Consults: Cardiology and Neurology. Time Spent in preparation of Discharge (in minutes): 35 Diagnosis - Discharge Diagnosis (1) Near syncope Status: Acute Priority: High (2) Generalized weakness Status: Acute (3) HTN (hypertension) Status: Chronic (4) DM II (diabetes mellitus, type II), controlled Status: Chronic Priority: Medium (5) High cholesterol Status: Chronic (6) Vitamin B12 deficiency Status: Chronic Priority: Medium (7) Hard of hearing Status: Chronic Priority: Medium Hospital Course - Lab Results Lab Results: Micro Results 04/15/18 07:51 Urine,Clean Catch Urine Culture - Preliminary Gram Negative Haroon Most Recent Lab Values WBC 5.2 K/uL (4.8-10.8) 04/15/18 04:20 RBC 4.25 Mil/uL (3.80-5.20) 04/15/18 04:20 Hgb 12.3 g/dL (12.0-16.0) 04/15/18 04:20 Hct 37.0 % (34.0-47.0) 04/15/18 04:20 MCV 87.1 fl (81.0-99.0) 04/15/18 04:20 MCH 28.9 pg (27.0-31.0) 04/15/18 04:20 MCHC 33.2 g/dL (33.0-37.0) 04/15/18 04:20 RDW 14.8 % (11.5-14.5) H 04/15/18 04:20 Plt Count 251 K/uL (130-400) 04/15/18 04:20 MPV 7.7 fl (7.2-11.7) 04/15/18 04:20 Neut % (Auto) 57.4 % (50.0-75.0) 04/15/18 04:20 Lymph % (Auto) 31.0 % (20.0-40.0) 04/15/18 04:20 Day % (Auto) 9.5 % (0.0-10.0) 04/15/18 04:20 Eos % (Auto) 1.6 % (0.0-4.0) 04/15/18 04:20 Baso % (Auto) 0.5 % (0.0-2.0) 04/15/18 04:20 Neut # (Auto) 3.0 K/uL (1.8-7.0) 04/15/18 04:20 Lymph # (Auto) 1.6 K/uL (1.0-4.3) 04/15/18 04:20 Day # (Auto) 0.5 K/uL (0.0-0.8) 04/15/18 04:20 Eos # (Auto) 0.1 K/uL (0.0-0.7) 04/15/18 04:20 Baso # (Auto) 0.0 K/uL (0.0-0.2) 04/15/18 04:20 PT 10.4 Seconds (9.8-13.1) 04/13/18 19:56 INR 0.9 (0.9-1.2) 04/13/18 19:56 APTT 23.9 Seconds (25.6-37.1) L 04/13/18 19:56 Sodium 141 mmol/l (132-148) 04/15/18 04:20 Potassium 3.8 MMOL/L (3.6-5.0) 04/15/18 04:20 Chloride 106 mmol/L (98-107) 04/15/18 04:20 Carbon Dioxide 27 mmol/L (22-30) 04/15/18 04:20 Anion Gap 12 (10-20) 04/15/18 04:20 BUN 14 mg/dl (7-17) 04/15/18 04:20 Creatinine 0.6 mg/dl (0.7-1.2) L 04/15/18 04:20 Est GFR ( Amer) > 60 04/15/18 04:20 Est GFR (Non-Af Amer) > 60 04/15/18 04:20 POC Glucose (mg/dL) 131 mg/dL (65-110) H 04/17/18 11:24 Random Glucose 100 mg/dL (65-105) 04/15/18 04:20 Hemoglobin A1c 6.0 % (4.2-6.5) 04/15/18 04:20 Calcium 8.8 mg/dL (8.4-10.2) 04/15/18 04:20 Total Bilirubin 0.4 mg/dl (0.2-1.3) 04/15/18 04:20 AST 20 U/L (14-36) 04/15/18 04:20 ALT 24 U/L (9-52) 04/15/18 04:20 Alkaline Phosphatase 71 U/L (38-126) 04/15/18 04:20 Troponin I < 0.0120 ng/mL (0.00-0.120) 04/13/18 19:56 Total Protein 6.6 G/DL (6.3-8.2) 04/15/18 04:20 Albumin 3.4 g/dL (3.5-5.0) L 04/15/18 04:20 Globulin 3.3 gm/dL (2.2-3.9) 04/15/18 04:20 Albumin/Globulin Ratio 1.0 (1.0-2.1) 04/15/18 04:20 Triglycerides 130 mg/DL (0-149) 04/15/18 04:20 Cholesterol 210 mg/dL (0-199) H 04/15/18 04:20 LDL Cholesterol Direct 117 mg/dL (0-129) 04/15/18 04:20 HDL Cholesterol 48 MG/DL (30-70) 04/15/18 04:20 Vitamin B12 543 pg/mL (239-931) 04/15/18 04:20 25-OH Vitamin D Total 25.5 NG/ML (30.0-100.0) L 04/15/18 04:20 Thyroxine (T4) 7.21 ug/dl (5.5-11.0) 04/15/18 04:20 TSH 3rd Generation 1.72 mIU/ML (0.46-4.68) 04/15/18 04:20 Urine Color Straw (YELLOW) 04/15/18 18:31 Urine Clarity Clear (Clear) 04/15/18 18:31 Urine pH 7.0 (5.0-8.0) 04/15/18 18:31 Ur Specific [place] 1.005 (1.003-1.030) 04/15/18 18:31 Urine Protein Negative mg/dL (NEGATIVE) 04/15/18 18:31 Urine Glucose (UA) Neg mg/dL (Normal) 04/15/18 18:31 Urine Ketones Negative mg/dL (NEGATIVE) 04/15/18 18:31 Urine Blood Negative (NEGATIVE) 04/15/18 18:31 Urine Nitrate Negative (NEGATIVE) 04/15/18 18:31 Urine Bilirubin Negative (NEGATIVE) 04/15/18 18:31 Urine Urobilinogen 0.2-1.0 mg/dL (0.2-1.0) 04/15/18 18:31 Ur Leukocyte Esterase Large Paulo/uL (Negative) 04/15/18 18:31 Urine RBC (Auto) 3 /hpf (0-3) 04/15/18 18:31 Urine Microscopic WBC 9 /hpf (0-5) H 04/15/18 18:31 Ur Squamous Epith Cells < 1 /hpf (0-5) 04/15/18 18:31 Urine Bacteria Rare (<OCC) 04/15/18 18:31 - Date & Time of H&P Date of H&P: 04/14/18 Time of H&P: 10:00 Discharge Exam - Head Exam Head Exam: NORMAL INSPECTION - Eye Exam Eye Exam: PERRL - ENT Exam Additional comments: Deafness - Neck Exam Neck exam: Normal Inspection - Respiratory Exam Respiratory Exam: NORMAL BREATHING PATTERN - Cardiovascular Exam Cardiovascular Exam: REGULAR RHYTHM - GI/Abdominal Exam GI & Abdominal Exam: Normal Bowel Sounds, Soft Additional comments: Redness to abdominal fold. - Extremities Exam Additional comments: Discoloration on top of R foot. - Back Exam Additional comments: Redness on sacral area. - Neurological Exam Neurological exam: Alert, Oriented x3 Additional comments: Unsteady gait 2nd to dizziness. - Psychiatric Exam Psychiatric exam: Anxious - Skin Skin Exam: Warm Discharge Plan - Discharge Medications Prescriptions: Meclizine [Meclizine*] 25 mg PO TID #45 tab - Follow Up Plan Condition: FAIR Disposition: HOME/ ROUTINE Patient education suggested?: Yes Instructions: Syncope (Fainting) (DC), Weakness (GEN) Additional Instructions: F/U with PMD in one week.
--- NOTE | 2018-04-17 16:04 | CARD ---
APPROVED REPORT EKG Measurement Heart [id number] <Conclusion> Sinus rhythm with 1st degree AV block Left bundle branch block Abnormal ECG
== END 2018-04-17 13:41 | disposition home or self-care (01) | DRG 312 ==
LOC: H.ER 18:21 → H.ERHOLD 22:23 → H.TEL 04-14 05:41 → OBSVTOIN 04-15 14:05
PROVIDERS: ADMIT Internal Medicine Pulmonary Disease; ATTEND Internal Medicine Pulmonary Disease
DX: R55 Syncope and collapse (principal); R53.1 Weakness; E11.9 Type 2 diabetes mellitus without complications; E53.8 Deficiency of other specified B group vitamins; Z86.011 Personal history of benign neoplasm of the brain; E78.00 Pure hypercholesterolemia, unspecified; E78.5 Hyperlipidemia, unspecified; F41.9 Anxiety disorder, unspecified; I10 Essential (primary) hypertension; H90.3 Sensorineural hearing loss, bilateral; M19.90 Unspecified osteoarthritis, unspecified site

== ENCOUNTER 2019-03-05 01:13 | Emergency (ER) | payer MEDICARE, MEDICAID ==
[2019-03-05 01:13] VITALS: BMI 30.3
[2019-03-05 02:14] LABS: SQUAMOUS EPITHIAL 1 /hpf (0-5); URINE BACTERIA FEW (<OCC); URINE BILIRUBIN NEGATIVE (NEGATIVE); URINE BLOOD SMALL (NEGATIVE); URINE CLARITY SLIGHTY-CLOUDY (Clear); URINE COLOR STRAW (YELLOW); URINE GLUCOSE (UA) NEG (NEGATIVE); URINE LEUKOCYTE ESTERASE LARGE Leu/uL (Negative); URINE PROTEIN NEGATIVE (NEGATIVE); URINE UROBILINOGEN 0.2-1.0 mg/dL (0.2-1.0)
--- NOTE | 2019-03-05 02:30 | ED PDOC ---
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 Patient states her blood pressure at home was elevated (contrary to triage note), and her blood sugar was elevated when she checked at home, and usually when they are high it makes her dizziness worse. Patient denies headache, vision changes, nausea/vomiting, extremity numbness/weakness, chest pain, shortness of breath, palpitations, abdominal pain. PMD: Dr. Joel Reyes Past Medical History Reviewed: Historical Data, Nursing Documentation, Vital Signs Vital Signs: Last Vital Signs Temp 98.1 F 03/05/19 01:17 Pulse 63 03/05/19 01:17 Resp 20 03/05/19 01:17 BP 130/60 03/05/19 01:17 Pulse Ox 100 03/05/19 01:17 Primary Care Physician: Joel Reyes MD - Medical History PMH: Anxiety, Arthritis, Diabetes, HTN Denies: Chronic Kidney Disease - Surgical History Surgical History: - Family History Family History: States: Unknown Family Hx - Home Medications Home Medications: Ambulatory Orders Medication Instructions Recorded Alprazolam [Xanax] 0.5 mg PO HS 10/06/15 Enalapril Maleate 2.5 mg PO DAILY 10/06/15 Promethazine DM [Phenergan DM 2 tsp PO Q4H 10/06/15 Syrup] Saxagliptin HCl/Metformin HCl 1 tab PO DAILY 10/06/15 [Kombiglyze Xr 5-500 mg Tablet] Tamsulosin [Flomax] 0.4 mg PO DAILY #14 cap 11/06/15 Cyanocobalamin [Vitamin B12 1000 04/13/18 mcg/ml Inj] Gabapentin [Neurontin] 300 mg PO 04/13/18 Rosuvastatin Calcium [Crestor] 10 mg PO 04/13/18 cycloSPORINE [Restasis] 1 liq 04/13/18 Meclizine [Meclizine*] 25 mg PO TID #45 tab 04/17/18 Nitrofurantoin Macrocrystals 100 mg PO BID #10 cap 03/05/19 [Macrobid] - Allergies Allergies/Adverse Reactions: Allergies Allergy/AdvReac Type Severity Reaction Status Date / Time No Known Allergies Allergy Verified 03/05/19 01:19 Review of Systems ROS Statement: Except As Marked, All Systems Reviewed And Found Negative Neurological: Positive for: Dizziness Physical Exam - Reviewed Nursing Documentation Reviewed: Yes Vital Signs Reviewed: Yes - Physical Exam Appears: Positive for: Well, Non-toxic, No Acute Distress Head Exam: Positive for: ATRAUMATIC, NORMAL INSPECTION, NORMOCEPHALIC Skin: Positive for: Normal Color Eye Exam: Positive for: Normal appearance, EOMI, PERRL. Negative for: Nystagmus ENT: Positive for: Normal ENT Inspection Cardiovascular/Chest: Positive for: Regular Rate, Rhythm Respiratory: Positive for: Normal Breath Sounds Gastrointestinal/Abdominal: Positive for: Normal Exam Back: Positive for: Normal Inspection Extremity: Positive for: Normal ROM Neurological/Psych: Positive for: Awake, Alert, Oriented (x3) - Laboratory Results Result Diagrams: 03/05/19 02:30 03/05/19 03:15 Lab Results: Urine Color Straw (YELLOW) 03/05/19 01:50 Urine Clarity Slighty-cloudy (Clear) 03/05/19 01:50 Urine pH 7.0 (5.0-8.0) 03/05/19 01:50 Ur Specific [place] < 1.005 (1.003-1.030) 03/05/19 01:50 Urine Protein Negative mg/dL (NEGATIVE) 03/05/19 01:50 Urine Glucose (UA) Neg mg/dL (NEGATIVE) 03/05/19 01:50 Urine Ketones Negative mg/dL (NEGATIVE) 03/05/19 01:50 Urine Blood Small (NEGATIVE) 03/05/19 01:50 Urine Nitrate Negative (NEGATIVE) 03/05/19 01:50 Urine Bilirubin Negative (NEGATIVE) 03/05/19 01:50 Urine Urobilinogen 0.2-1.0 mg/dL (0.2-1.0) 03/05/19 01:50 Ur Leukocyte Esterase Large Paulo/uL (Negative) 03/05/19 01:50 Urine RBC (Auto) 5 /hpf (0-3) H 03/05/19 01:50 Urine Microscopic WBC 55 /hpf (0-5) H 03/05/19 01:50 Ur Squamous Epith Cells 1 /hpf (0-5) 03/05/19 01:50 Urine Bacteria Few (<OCC) H 03/05/19 01:50 - ECG ECG: Positive for: Viewed By Me (reviewed by ED attending) ECG Rhythm: Positive for: Sinus Rhythm, Left Bundle Branch Block (seen on previous EKGs) O2 Sat by Pulse Oximetry: 100 - Progress ED Course And Treament: -accucheck -ekg -cbc -cmp -troponin -CT head -lunchroom monitor CT SCAN OF THE BRAIN WITHOUT IV CONTRAST CLINICAL INDICATION: Dizziness. Comparison: 04/15/2018. TECHNIQUE: Axial and reformatted sagittal and coronal images of the brain obtained without IV contrast administration. Findings: 3.5 cm left frontal uncomplicated than meningioma. Unchanged buckling of the adjacent left frontal cortex. Right cerebellar chronic encephalomalacia. Unchanged. Right occipital craniectomy, unchanged. Unchanged mild midline shift to the right side. Normal size of the ventricles and extra-axial spaces for the patient's age. Normal white matter tracts of the supratentorial brain. Normal basal ganglia and thalami. Normal brainstem. Normal cerebellum. There is no demonstrated extra-axial, intraparenchymal, or intraventricular hemorrhage. There are no findings of an acute ischemic infarction. Normal calvarium. There is no demonstrated fracture. Normal soft tissue structures. Normal visualized paranasal sinuses. IMPRESSION: 3.5 cm left frontal uncomplicated than meningioma. Unchanged buckling of the adjacent left frontal cortex. Right cerebellar chronic encephalomalacia. Unchanged. Right occipital craniectomy, unchanged. Unchanged mild midline shift to the right side IV rocephin dose given for UTI On re-eval, patient states she is feeling better Case discussed with Dr. Reyes, who is familiar with patient, states she has ivelisse gstanding history of vertigo and if she is feeling better can be discharged to follow up as outpatient Patient comfortable with discharge, requesting to call daughter at 6am to pick her up. Rx Macrobid provided Return precautions given Disposition - Clinical Impression Clinical Impression: Dizziness, UTI (urinary tract infection) - Patient ED Disposition Is Patient to be Admitted: No Counseled Patient/Family Regarding: Studies Performed, Diagnosis, Need For Followup, Rx Given - Disposition Referrals: Joel Reyes MD [Primary Care Provider] - Disposition: Routine/Home Disposition Time: 04:53 Condition: IMPROVED Prescriptions: Nitrofurantoin Macrocrystals [Macrobid] 100 mg PO BID #10 cap Instructions: Vertigo (a Type of Dizziness), Urinary Tract Infections in Adults Print Language: DANISH
[2019-03-05 02:56] LABS: BASO % 0.7 % (0.0-2.0); EOS # 0.1 K/uL (0.0-0.7); HEMOGLOBIN 12.2 g/dL (12.0-16.0); LYMPH # 1.8 K/uL (1.0-4.3); LYMPH % 34.9 % (20.0-40.0); MEAN CELL VOLUME 84.3 fl (81.0-99.0); MEAN CORPUSCULAR HEMOGLOBIN 27.9 pg (27.0-31.0); MEAN PLATELET VOLUME 8.5 fl (7.2-11.7); MONO # 0.5 K/uL (0.0-0.8); MONO % 10.6 % (0.0-10.0); NEUT # 2.7 K/uL (1.8-7.0); NEUT % 52.8 % (50.0-75.0); NRBC % 0.1 % (0.0-0.0); RBC 4.38 Mil/uL (3.80-5.20); RED CELL DISTRIBUTION WIDTH 16.6 % (11.5-14.5); WHITE BLOOD COUNT 5.1 K/uL (4.8-10.8)
[2019-03-05] MEDS ORDERED: cefTRIAXone (Rocephin) 1 gm Inj ONE (03:25)
[2019-03-05 03:34] LABS: ALB/GLOB RATIO 1.4 (1.0-2.1); ALT/SGPT 26 U/L (9-52); AST/SGOT 20 U/L (14-36); BLOOD UREA NITROGEN 13 mg/dl (7-17); CALCIUM 9.5 mg/dL (8.4-10.2); GFR NON-AFRICAN AMERICAN > 60
[2019-03-05 06:41] VITALS: BP 131/82; PULSE 65; RESP 16; TEMP 98.3; O2SAT 97
--- NOTE | 2019-03-05 11:02 | CT ---
Date of service: 03/05/2019 PROCEDURE: CT HEAD WITHOUT CONTRAST. HISTORY: dizziness COMPARISON: 04/15/2018 TECHNIQUE: Axial computed tomography images were obtained through the head/brain without intravenous contrast. Supplemental Coronal and Sagittal projections created and reviewed. Radiation dose: Total exam DLP = 804.47 mGy-cm. This CT exam was performed using one or more of the following dose reduction techniques: Automated exposure control, adjustment of the mA and/or kV according to patient size, and/or use of iterative reconstruction technique. FINDINGS: HEMORRHAGE: No intracranial hemorrhage. BRAIN: Extra-axial dural-based calcified masses again identified. This includes left frontal meningioma measuring 2.2 x 2.8 cm. Dural-based calcified mass 1 cm noted right frontal region. Densely calcified extra-axial dural-based mass left temporal region 1.3 cm. No atrophy or chronic microvascular ischemic changes. VENTRICLES: Unremarkable. No hydrocephalus. CALVARIUM: Post craniotomy findings right occipital, sub occipital region. PARANASAL SINUSES: Unremarkable as visualized. No significant inflammatory changes. MASTOID AIR CELLS: Unremarkable as visualized. No inflammatory changes. OTHER FINDINGS: None. IMPRESSION: Multiple (3) extra-axial masses the largest left frontal lobe. No significant change compared to 04/15/2018. Stable right suboccipital craniectomy findings. Concordant results (preliminary interpretation) provided by DARRELL KATZ. Procedure Completed: 02:07. Preliminary Report: Interpreted and electronically signed: 03:14. Final Interpretation: 10:58.
== END 2019-03-05 07:03 | disposition home or self-care (01) ==
LOC: H.ER 01:13
DX: R42 Dizziness and giddiness (principal); N39.0 Urinary tract infection, site not specified; E11.9 Type 2 diabetes mellitus without complications; I10 Essential (primary) hypertension
CPT/HCPCS: 70450; 80053; 81003; 82948; 84484; 85025; 87086; 87181; 96374; 99285; J0696